=== PATIENT | male | born 1990 | race Caucasian/White ===

== ENCOUNTER 2018-08-09 14:20 | Emergency (ER) | payer OTHER ==
[~2018-08-09] VITALS: Ht 170.2 cm; Wt 88.0 kg
--- NOTE | 2018-08-09 14:21 | NUR ---
WHITNEY PURCELL, CURRENTLY AWAITING BED
--- NOTE | 2018-08-09 14:22 | NUR ---
PT TAKEN TO BED 5 BY [facility]
[2018-08-09 14:32] VITALS: BP 132/74
--- NOTE | 2018-08-09 14:39 | NUR ---
C/O DIZZINESS AND NAUSEA X 2 DAYS. PT WAS SEEN IN [place] YESTERDAY, RX MECLIZINE DX [place]. NO CT WAS DONE (CT DOWN UNTIL FRIDAY AT [place]). PT WAS DEFERRED HERE FOR POSSIBLE CT. VSS, DENIES PAIN.
--- NOTE | 2018-08-09 15:08 | NUR ---
PT RETURNED FROM CT
--- NOTE | 2018-08-09 15:39 | NUR ---
Patient being evaluated by physician at bedside.
[2018-08-09] MEDS ORDERED: MECLIZINE 25 MG TAB PO ONE (15:50)
[2018-08-09 16:18] VITALS: BP 132/74
--- NOTE | 2018-08-09 16:19 | NUR ---
Patient discharged with v/s stable. Written and verbal after care instructions given and explained. Patient alert, oriented and verbalized understanding of instructions. Ambulatory with steady gait. All questions addressed prior to discharge. ID band removed. Patient advised to follow up with PMD. Rx of meclazine given. Patient educated on indication of medication including possible reaction and side effects. Opportunity to ask questions provided and answered.
== END 2018-08-09 16:19 | disposition home or self-care (01) ==
LOC: MED 14:20
DX: R42 Dizziness and giddiness (principal)
CPT/HCPCS: 70450; 99284; J8597